=== PATIENT | male | born 1965 | race Caucasian/White ===

== ENCOUNTER 2017-05-18 22:52 | Emergency (ER) | payer BC, SELFPAY | END 2017-05-19 01:00 | disposition home or self-care (01) | PROVIDERS: Emergency Provider Emergency Medicine; Visit Provider Emergency Medicine | DX: K52.9 Noninfective gastroenteritis and colitis, unspecified (principal); E86.0 Dehydration; I10 Essential (primary) hypertension | CPT/HCPCS: 71020; 80053; 82150; 82550; 82553; 83605; 83690; 84484; 85025; 87040; 87275; 87276; 96365; 96375; 99284; J2405 ==